=== PATIENT | female | born 1965 | race Caucasian/White ===

== ENCOUNTER 2018-05-03 20:44 | Emergency (ER) | payer SELFPAY ==
[~2018-05-03] VITALS: Ht 152.4 cm; Wt 99.8 kg
[2018-05-03] MEDS ORDERED: PROCHLORPERAZINE 10 MG/2 ML VIAL. IV ONE (21:45)
[2018-05-03] MEDS ORDERED: diphenhydrAMINE 50 MG/ML VIAL IVP ONE (21:45)
[2018-05-03] MEDS ORDERED: KETOROLAC 30 MG/ML VIAL. IV ONE (21:45)
[2018-05-03] MEDS ORDERED: IV NORMAL SALINE 1000ML BAG 1,000 ML IV ONE (21:45)
--- NOTE | 2018-05-03 22:04 | PHYS DOC ---
Past Medical History Past Medical History: Diabetes-Type II, High Cholesterol Past Surgical History: Appendectomy, Cholecystectomy, , Tubal ligation Alcohol Use: None Drug Use: None Adult General Chief Complaint Chief Complaint: HEADACHE HPI HPI Patient is a 53 year old female who presents with headache. Patient has a known history of chronic headaches. This headache has been bitemporal over the last 5 days. It localized to the right side of her head earlier today. Pain is described be sharp and stabbing. She has had no vomiting but has had some nausea. No vision changes. No fever or chills. The headache did not begin suddenly. The headache is typical for her normal migraine syndrome. She uses medications at home but these did not relieve her symptoms. Review of Systems Review of Systems Constitutional: Denies fever or chills Eyes: Denies change in visual acuity HENT: Denies nasal congestion Respiratory: Denies cough or shortness of breath Cardiovascular: No additional information not addressed in HPI GI: Denies abdominal pain Musculoskeletal: Denies back pain Integument: Denies rash or skin lesion Neurologic: Denies headache, focal weakness or sensory changes All other systems were reviewed and found to be within normal limits, except as documented in this note. Current Medications Current Medications Current Medications Medications (Trade) Dose Ordered Sig/Saray Start Time Stop Time Status Last Admin Dose Admin Diphenhydramine HCl (Benadryl) 12.5 mg 1X ONCE 05/03/18 21:45 05/03/18 21:46 DC 05/03/18 23:16 12.5 MG Ketorolac Tromethamine (Toradol 30mg Vial) 30 mg 1X ONCE 05/03/18 21:45 05/03/18 21:46 DC 05/03/18 23:17 30 MG Prochlorperazine Edisylate (Compazine) 10 mg 1X ONCE 05/03/18 21:45 05/03/18 21:46 DC 05/03/18 23:16 10 MG Sodium Chloride 1,000 ml @ 1,000 mls/hr 1X ONCE 05/03/18 21:45 05/03/18 22:44 DC 05/03/18 23:15 1,000 MLS/HR Allergies Allergies Allergies Coded Allergies Type Severity Reaction Last Updated Verified amoxicillin Allergy Severe Swelling 05/03/18 Yes latex Allergy Severe Hives 05/03/18 Yes vitamin K2 Allergy Severe Hives 05/03/18 Yes Physical Exam Physical Exam Constitutional: Well developed, well nourished, no acute distress HENT: Normocephalic, atraumatic, bilateral external ears normal, oropharynx moist Eyes: PERRLA, EOMI, conjunctiva normal Neck: Normal range of motion, no tenderness Cardiovascular:Heart rate regular rhythm Lungs & Thorax: Bilateral breath sounds clear to auscultation Abdomen: Bowel sounds normal, soft, no tenderness Skin: Warm, dry, no erythema, no rash Neurologic: Alert and oriented X 3 Psychologic: Affect normal, judgement normal Current Patient Data Vital Signs Vital Signs Date Time Temp Pulse Resp B/P (MAP) Pulse Ox O2 Delivery O2 Flow Rate FiO2 05/04/18 00:30 66 20 97 05/03/18 20:56 98.1 185/83 (117) Room Air 98.1 EKG EKG [] Radiology/Procedures Radiology/Procedures [] Course & Med Decision Making Course & Med Decision Making Pertinent Labs and Imaging studies reviewed. (See chart for details) 21:45: Patient is seen and examined. She is having a headache that seems typical for her normal syndrome. Standard headache medications, Compazine and Benadryl are ordered. Patient had complete relief of her headache symptoms after a dose of Compazine and Benadryl. Her neurologic exam remained normal. She received some IV fluids. She was requesting discharge home. Patient was discharged to home. She was encouraged to follow-up with her primary care doctor or return to the ER for any new or worsening symptoms. Dragon Disclaimer Dragon Disclaimer This electronic medical record was generated, in whole or in part, using a voice recognition dictation system. Departure Departure Referrals: UNKNOWN PCP NAME (PCP) MATT AVINA DO May 03, 2018 22:04
[2018-05-04 00:30] VITALS: BP 167/76
== END 2018-05-04 00:45 | disposition home or self-care (01) ==
LOC: ER 20:44
DX: R51 Headache (principal); R11.0 Nausea; E11.9 Type 2 diabetes mellitus without complications; E78.00 Pure hypercholesterolemia, unspecified; Z90.49 Acquired absence of other specified parts of digestive tract; Z88.1 Allergy status to other antibiotic agents; Z88.8 Allergy status to other drugs, medicaments and biological substances; Z91.040 Latex allergy status
CPT/HCPCS: 96374; 96375; 99284; J0780; J1200; J1885; J7030

== ENCOUNTER 2018-10-24 18:11 | Emergency (ER) | payer SELFPAY ==
[~2018-10-24] VITALS: Ht 152.4 cm; Wt 99.8 kg
[2018-10-24 18:24] VITALS: BP 130/76
--- NOTE | 2018-10-24 18:54 | PHYS DOC ---
Past Medical History Past Medical History: Diabetes-Type II, High Cholesterol Past Surgical History: Appendectomy, Cholecystectomy, , Tubal ligation Alcohol Use: None Drug Use: None Adult General Chief Complaint Chief Complaint: LOWER EXT PAIN HPI HPI 53 y/o female presents to ER via POV for c/o lt knee pain after fall on 10/12. She reports she slipped when walking down her outdoor steps and fell. She denies being evaluated after the fall. She reports she has had ongoing lt knee pain so came to ER for eval. She reports she has been taking tylenol and ibuprofen for pain. She denies use of cane/crutches. She denies swelling/ bruising. She denies head/neck pain. She reports she has had some muscle aches intermittently since fall. Review of Systems Review of Systems Constitutional: Denies fatigue HENT: Denies head/neck pain Respiratory: Denies shortness of breath [] Cardiovascular: No additional information not addressed in HPI [] : Denies urinary sxs Musculoskeletal: Denies back pain. Reports lt knee pain Integument: Denies swelling/bruising Neurologic: Denies focal weakness or sensory changes. Denies numbness/tingling All other systems were reviewed and found to be within normal limits, except as documented in this note. Allergies Allergies Allergies Coded Allergies Type Severity Reaction Last Updated Verified amoxicillin Allergy Severe Swelling 05/03/18 Yes latex Allergy Severe Hives 05/03/18 Yes vitamin K2 Allergy Severe Hives 05/03/18 Yes Physical Exam Physical Exam Constitutional: Well developed, well nourished, no acute distress, non-toxic appearance. [] HENT: Normocephalic, atraumatic, bilateral external ears normal, oropharynx moist, no oral exudates, nose normal. [] Eyes: PERRLA, EOMI, conjunctiva normal, no discharge. [] Neck: Normal range of motion, no tenderness, supple, no stridor. [] Cardiovascular:Heart rate regular rhythm, no murmur [] Lungs & Thorax: Bilateral breath sounds clear to auscultation [] Abdomen: Bowel sounds normal, soft, no tenderness, no masses, no pulsatile masses. [] Skin: Warm, dry, no erythema, no rash. [] Back: No tenderness, no CVA tenderness. [] Extremities: , no cyanosis, no clubbing, ROM intact, no edema. [] Neurologic: Alert and oriented X 3, normal motor function, normal sensory function, no focal deficits noted. [] Psychologic: Affect normal, judgement normal, mood normal. [] Current Patient Data Vital Signs Vital Signs Date Time Temp Pulse Resp B/P (MAP) Pulse Ox O2 Delivery O2 Flow Rate FiO2 10/24/18 18:24 98.4 74 18 130/76 (94) 99 Room Air 98.4 EKG EKG [] Radiology/Procedures Radiology/Procedures [] Course & Med Decision Making Course & Med Decision Making Pertinent Imaging studies reviewed. (See chart for details) 1900: Xray viewed by Dr. Eaton- no obvious displaced fxs. Discussed this with pt and estefany wrap was applied to lt knee. Pt remains PMS intact prior to and following estefany application. Discussed f/u with orthopedic doctor for further care and re-eval. Will provide referral info on d/c paperwork. Dragon Disclaimer Dragon Disclaimer This electronic medical record was generated, in whole or in part, using a voice recognition dictation system. Departure Departure Impression: Primary Impression: Knee pain, left Disposition: 01 HOME, SELF-CARE Condition: STABLE Referrals: UNKNOWN PCP NAME (PCP) EMIR ZAFAR II, MD Patient Instructions: Elastic Bandage and RICE, Knee Pain Additional Instructions: Follow-up with orthopedic doctor for re-evaluation and further care. Wear your estefany wrap while walking. Tylenol and ibuprofen as needed for pain as directed on container. TASHI GERARD APRN Oct 24, 2018 18:54
--- NOTE | 2018-10-24 22:57 | RAD ---
Three-view left knee radiographs 10/24/2018 CLINICAL HISTORY: Left knee pain post fall. AP, lateral and oblique digital radiographs of the left knee were obtained. Mild to moderate degenerative changes are seen involving all 3 compartments of the left knee. No fracture or dislocation left knee is seen. There is no radiographic evidence of a joint effusion. IMPRESSION: No fracture or dislocation of the left knee is seen. Electronically signed by: Joaquim Goldman MD (10/24/2018 10:54 PM) [facility]
== END 2018-10-24 19:30 | disposition home or self-care (01) ==
LOC: ER 18:11
DX: M25.562 Pain in left knee (principal); E11.9 Type 2 diabetes mellitus without complications; E78.00 Pure hypercholesterolemia, unspecified; Z90.49 Acquired absence of other specified parts of digestive tract; Z90.89 Acquired absence of other organs; Z98.890 Other specified postprocedural states; Z98.51 Tubal ligation status; Z88.1 Allergy status to other antibiotic agents; Z91.040 Latex allergy status; Z91.018 Allergy to other foods
CPT/HCPCS: 73562; 99283